=== PATIENT | male | born 1960 | race Caucasian/White ===

== ENCOUNTER 2021-02-26 08:49 | Emergency (ER) | payer SELFPAY ==
--- NOTE | 2021-02-26 08:52 | NUR ---
called no answer
--- NOTE | 2021-02-26 09:32 | NUR ---
called 2nd time no answer
== END 2021-02-26 10:30 | disposition left against medical advice (07) ==
LOC: SED 08:49
DX: M79.18 Myalgia, other site (principal); Z53.21 Procedure and treatment not carried out due to patient leaving prior to being seen by health care provider